=== PATIENT | female | born 1940 | race Caucasian/White ===

== ENCOUNTER → 2018-01-17 | Outpatient (CLI) | payer MEDICARE, BC ==
--- NOTE | 2018-01-17 12:20 | Diagnostic Imaging Report ---
Radiographs of the right knee - 4 views HISTORY: Pain COMPARISON: None available. FINDINGS: Bones: No acute displaced fracture. Osseous alignment is within normal limits. 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 No osseous erosion. Soft tissues: The soft tissues appear unremarkable. 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 Signed by: Dr. Tomi Perry M.D. on 01/17/2018 12:16 PM
--- NOTE | 2018-01-17 13:31 | Diagnostic Imaging Report ---
Right knee MRI without contrast. History: Knee pain. Degenerative joint disease. Decreased range of motion. Comparison: Radiographs January 17, 2018. Technique: Multiplanar multi-sequence MRI of the knee without contrast. Findings: Medial compartment: There is a complex tear involving the posterior horn and body segments of the medial meniscus. The medial compartmental articular cartilage surfaces are thinned with regions of fraying and deep fissuring. There are small peripheral marginal osteophytes. The medial collateral ligament complex is intact. Lateral compartment: There is a complex tear involving the posterior horn and body segment of the lateral meniscus. There are regions of full-thickness articular cartilage loss in the lateral compartment with underlying bone marrow edema. There are peripheral marginal osteophytes. The lateral collateral ligament complex is intact. There is what appears to be an interosseous cyst in the proximal fibula. Intercondylar notch: There is scarring and attenuation of the anterior cruciate ligament. The ACL and PCL are otherwise intact. Patellofemoral compartment: There is articular cartilage fraying and deep fissuring in the patellofemoral compartment. Extensor mechanism: The quadriceps and patellar tendons are normal. Other findings: There is a joint effusion and synovitis. There is no acute fracture, subluxation or avascular necrosis. There is a lobulated septated Sanabria's cyst with evidence of partial rupture into the posterior soft tissues. IMPRESSION: Complex lateral meniscus tear with advanced degenerative arthrosis in the lateral compartment of the knee. Complex medial meniscus tear with less severe degenerative arthrosis in the medial compartment of the knee. Joint effusion, synovitis and lobulated septated Sanabria's cyst with evidence of partial rupture into the posterior soft tissues. Signed by: Dr. Tomi Perry M.D. on 01/17/2018 1:28 PM
== END ==
LOC: MRI 10:48
PROVIDERS: ATTEND Emergency Medicine
DX: M17.11 Unilateral primary osteoarthritis, right knee (principal)

== ENCOUNTER → 2020-02-14 | Outpatient (CLI) | payer MEDICARE, BC ==
[~2020-02-14] MED LIST: IOPAMIDOL 370 MG/ML 200 ML INFUS..BTL INJ ONE; SODIUM CHLORIDE 0.9% 50ML 50 ML ONE
[2020-02-14 08:40] LABS: BLOOD UREA NITROGEN 15 mg/dL (7-26); BUN/CREATININE RATIO 17 (6-25); CREATININE, SERUM 0.86 mg/dL (0.57-1.11); EST GLOMERULAR FILTRATION RATE > 60 ML/MIN (60-)
--- NOTE | 2020-02-14 09:58 | Diagnostic Imaging Report ---
Right knee MRI without contrast. History: Knee pain. Decreased range of motion. Remote trauma. Comparison: January 17, 2018. Technique: Multiplanar multi-sequence MRI of the knee without contrast. Findings: Medial compartment: There is a complex tear involving the posterior horn and body segments of the medial meniscus. The medial compartmental articular cartilage surfaces are thinned with regions of fraying and deep fissuring. This has progressed when compared with the prior exam. There are small peripheral marginal osteophytes. The medial collateral ligament complex is intact. Lateral compartment: There is a complex tear involving the posterior horn and body segment of the lateral meniscus. There are regions of full-thickness articular cartilage loss in the lateral compartment with underlying bone marrow edema. This has progressed when compared with the prior exam. There are peripheral marginal osteophytes. The lateral collateral ligament complex is intact. There is what appears to be an interosseous cyst in the proximal fibula. This is essentially unchanged. Intercondylar notch: There is scarring and attenuation of the anterior cruciate ligament. The ACL and PCL are otherwise intact. Patellofemoral compartment: There is articular cartilage fraying and deep fissuring in the patellofemoral compartment. Extensor mechanism: The quadriceps and patellar tendons are normal. Other findings: There is a joint effusion and synovitis. There is no acute fracture, subluxation or avascular necrosis. There is a lobulated septated Sanabria's cyst IMPRESSION: Complex lateral meniscus tear with advanced degenerative arthrosis in the lateral compartment of the knee. This has progressed when compared with the prior exam. Complex medial meniscus tear with less severe degenerative arthrosis in the medial compartment of the knee. This has progressed when compared with the prior exam. Joint effusion, synovitis and lobulated septated Sanabria's cyst. Signed by: Dr. Tomi Perry M.D. on 02/14/2020 9:55 AM
--- NOTE | 2020-02-14 10:15 | Diagnostic Imaging Report ---
Exam: Bone mineral density study. History: Osteopenia. Comparison: None Discussion: Evaluation of the left hip and lumbar spine was performed utilizing DEXA Hologic bone densitometer. The study is technically adequate. Left hip total bone mineral density: 0.642gm/cm2, T-score is -2.5, Z-score is -0.4. Left hip femoral neck bone mineral density: 0.543gm/cm2, T-score is -2.8, Z-score is -0.4. Lumbar spine total bone mineral density:0.855gm/cm2, T-score is-1.7, Z-score is 1.0. Impression: 1. Osteoporosis of the left hip, fracture risk is high 2. Osteopenia of the lumbar spine, fracture risk is increased Least significant change (LSC) for bone mineral density as provided by vocational technical education teacher is 0.023 g/cm2 for lumbar spine and 0.027 g/cm2 for total hip. 10 -year fracture risk per WHO Fracture Risk Assessment Tool (FRAX) for: Not reported because some T-scores at or below -2.5 The patient's fracture risk is compared to an age-matched control. Medical evaluation for secondary causes of low bone bone mineral density may be appropriate. Correlate clinically for the necessity and timing of the next bone mineral density study. Signed by: Dr. Tomi Perry M.D. on 02/14/2020 10:11 AM
--- NOTE | 2020-02-14 11:28 | Diagnostic Imaging Report ---
CT of the chest, with contrast, 02/14/2020. History: Abnormal finding of the lung. Comparison: None available. Technique: Multidetector CT scanning of the chest was performed from the level of the apices to the upper abdomen after intravenous administration of contrast. Coronal and sagittal multiplanar reformations were obtained. RADIATION DOSE: Total DLP: 386 mGy*cm Dose modulation, iterative reconstruction, and/or weight based adjustment of the mA/kV was utilized to reduce the radiation dose to as low as reasonably achievable. Discussion: Chest: The atria, ventricles, aorta, and main pulmonary artery are normal in size. There is atherosclerotic calcification of the coronary arteries and thoracic aorta. Atherosclerotic plaque is present throughout the descending thoracic aorta and visualized portions of the abdominal aorta. The thyroid is unremarkable. There is no evidence of axillary or mediastinal adenopathy. There is biapical pleural thickening and upper lobe scarring. Bilateral centrilobular emphysema is present. A 4.1 x 2.8 x 1.8 cm oblong opacity measuring 43 Hounsfield units in density is present in the right middle lobe with adjacent linear scarring and anterior pleural thickening, and abutting the right atrium. A calcified granuloma is present along the superior aspect of this lesion. Some air bronchograms are present along the posterior aspect of this region. There is no evidence of pleural effusion. Limited evaluation of the upper abdomen shows normal adrenal glands. Bones and soft tissues: No acute abnormality. Degenerative changes are present throughout the thoracic spine. IMPRESSION: 1. Right middle lobe opacity may represent a combination of consolidated and atelectatic lung from prior infectious process with scarring, but neoplasm cannot be occluded. Comparison to previous exams would be most helpful. Otherwise, PET/CT may be considered for additional evaluation. 2. Findings of emphysematous and previous granulomatous disease are noted. Signed by: Gerardo Navarro on 02/14/2020 11:25 AM
== END ==
LOC: MRI 07:50
PROVIDERS: ATTEND Emergency Medicine
DX: R91.8 Other nonspecific abnormal finding of lung field (principal); M81.0 Age-related osteoporosis without current pathological fracture; M25.561 Pain in right knee; Z85.118 Personal history of other malignant neoplasm of bronchus and lung
CPT/HCPCS: 36415; 71260; 73721; 77080; 82565; 84520; Q9967

== ENCOUNTER → 2020-05-28 | Outpatient (CLI) | payer MEDICARE, BC | LOC: MRI 10:31 | PROVIDERS: ATTEND Psychiatry & Neurology Neurology | DX: G30.1 Alzheimer's disease with late onset (principal) | CPT/HCPCS: 70551 ==